=== PATIENT | female | born 1980 | race African-American/Black ===

== ENCOUNTER 2021-06-09 09:38 | Emergency (ER) | payer OTHER ==
--- OUTSIDE RECORDS SUMMARY | 2021-06-09 09:41 | XMS REPORT | Continuity of Care Document ---
:1980 Author Organization [facility] t Address [address] [place] [address] Care Team Providers Name Role Phone Ruthann TANNER Primary Care Physician Abdi Corado DO Attending Clinician Doctor Unassigned, Name Attending Clinician Unavailable Ulises Serrano MD Attending Clinician Nate CLARKE Attending Clinician Dilcia RN, L Attending Clinician Unavailable Ruthann TANNER Attending Clinician Payers Payer Name Policy Type Policy Effective Expiration Source Number Date Date [facility] [id number] 2019 [facility] - MANAGED 00:00:00 [facility] dical MEDICAIDCOMMUNITY Branch HEALTH CHOICE [id number] 019-[address] [address]Medicaid Problems Condition Condition Condition Status Onset Resolution Last Treating Co mments Source Name Details Category Date Date Treatment Clinician Date Iron Iron Disease Active 2019-11 Univers deficiency deficiency 0-13 it [place] of anemia due [place] to chronic to chronic 00 Ms dical blood loss blood loss Br anch History of History of Disease Active 2020- U nivers bilateral bilateral 8-04 ity of salpingect salpingect [place] Medical Branch BMI BMI Disease Active 2020-0 Univers 34.0-34.9, 34.0-34.9, 8-04 it y of adult adult 00:00: [place] 00 Medical Branch Vaginal Vaginal Disease Active 2020-0 Univers dryness dryness 8-04 ity of 00:00: [place] 00 Medical Branch Recurrent Recurrent Disease Active 2020-0 Uni vers candidiasi candidiasi 8-04 it y of s of s of 00:00: [place] vagina vagina 00 Medical Branch History of History of Disease Active 2020-0 U nivers breast breast 8-04 ity of biopsy biopsy 00:00: [place] 00 Medical Branch Pain Pain Disease Active 2020-0 Univers pelvic pelvic 8-04 ity of 00:00: [place] [facility] Menorrhagi Menorrhagi Disease Active 2020-0 U nivers a with a with 8-04 ity of regular regular 00:00: [place] cycle cycle 00 Medical Branch Chronic Chronic Disease Active 2020-0 Univers anemia anemia 8-04 ity of 00:00: [place] 00 Medical Branch Other Other Disease Resolve 2020-2020-06-09 2020-06-09 Univers general general d 4-02 00:00:00 15:25:54 it[place] of counseling counseling 00:00: [place] and advice and advice 00 Ms dical for [facility] Branch contracept contracept shakila shakila management management H/O: H/O: Disease Resolve 2020-0 2020-06-09 2020-06-09 Univers hysterecto hysterecto d 4- 00:00:00 15:56:34 ity of my my 00:00: [place] [facility] Vaginal Vaginal Disease Resolve 2020-0 2020-06-09 2020-06-09 Univers dryness dryness d 4- 00:00:00 15:25:54 ity of 00:00: [place] [facility] Pain Pain Disease Resolve 2019-2020-06-09 2020-06-09 Univers pelvic pelvic d 4- 00:00:00 15:56:43 ity of 00:00: [place] 00 Medical Branch Allergies, Adverse Reactions, Alerts This patient has no known allergies or adverse reactions. Social History Social Habit Start Date Stop Date Quantity Comments Source Exposure to Yes [facility] SARS-CoV-2 [facility] (event) [place] Tobacco use and 2021-02-23 2021-02-23 Never used Universit y of exposure 00:00:00 00:00:00 [facility] Alcohol intake 2021-02-23 2021-02-23 Ex-drinker [facility] 00:00:00 00:00:00 (finding) [facility] Sex Assigned At [birth year] Universit y of 00:00:00 00:00:00 [facility] Smoking Status Start Date Stop Date Source Never smoker [facility] Medications Ordered Filled Start Stop Current Ordering Indication Dosage Frequency Signature Comments Components Source Medication Medication Date Date Medication? Clinician (SIG) Name Name clotrimazol Yes Tinea Apply to Univers e 1 % 4-27 versicolor area(s) at it y of topical 00:00: bedtime. [place] cream 00 Medical Branch clotrimazol Yes Tinea Apply to Univers e 1 % 4-27 versicolor area(s) at it y of topical 00:00: bedtime. [place] cream 00 [facility] terconazole Yes Yeast 1{appli Insert 1 Univers 0.4 % 4-26 infection cator} Applicator i ty of vaginal 00:00: into [place] cream vagina at Medical bedtime. Branch dicyclomine Yes Stomach TAKE ONE Univers 10 mg 4-26 ache CAPSULE BY ity of capsule 00:00: MOUTH THREE Medical TIMES Branch DAILY NEEDED fluconazole Yes Yeast TAKE 1 Uni vers 150 mg 4-26 infection TABLET BY ity of tablet 00:00: MOUTH NOW AND 1 Medical TABLET Branch AFTER FINISHING ANTIBIOTIC S terconazole Yes Yeast 1{appli Insert 1 Univers 0.4 % 4-26 infection cator} Applicator i ty of vaginal 00:00: into [place] cream vagina at Medical bedtime. Branch dicyclomine Yes Stomach TAKE ONE Univers 10 mg 4-26 ache CAPSULE BY ity of capsule 00:00: MOUTH 00 THREE Medical TIMES Branch DAILY NEEDED linaCLOtide Yes 145ug Take 1 Uni vers (LINZESS) 4-26 capsule by ity of 145 mcg 00:00: mouth [place] capsule daily. Medical Appointmen Branch t needed for refills terconazole Yes Yeast 1{appli Insert 1 Univers 0.4 % 4-26 infection cator} Applicator i ty of vaginal 00:00: into [place] cream vagina at Medical bedtime. Branch dicyclomine Yes Stomach TAKE ONE Univers 10 mg 4-26 ache CAPSULE BY ity of capsule 00:00: MOUTH [place] 00 THREE Medical TIMES Branch DAILY NEEDED fluconazole Yes Yeast TAKE 1 Uni vers 150 mg 4-26 infection TABLET BY ity of tablet 00:00: MOUTH NOW [place] 00 AND 1 Medical TABLET Branch AFTER FINISHING ANTIBIOTIC S terconazole Yes Yeast 1{appli Insert 1 Univers 0.4 % 4-26 infection cator} Applicator i ty of vaginal 00:00: into [place] cream 00 vagina at Medical bedtime. Branch dicyclomine Yes Stomach TAKE ONE Univers 10 mg 4-26 ache CAPSULE BY ity of capsule 00:00: MOUTH [place] 00 THREE Medical TIMES Branch DAILY NEEDED linaCLOtide Yes 145ug Take 1 Uni vers (LINZESS) 4-26 capsule by ity of 145 mcg 00:00: mouth [place] capsule 00 daily. Medical Appointmen Branch t needed for refills amoxicillin Yes Seasonal 1{tbl} Take 1 Univers -clavulanat 4-16 allergic tablet by ity of e 00:00: rhinitis, mouth 2 [place] (AUGMENTIN) 00 unspecified (two) Medical 875-125 mg trigger times Branc h per tablet daily. amoxicillin Yes Seasonal 1{tbl} Take 1 Univers -clavulanat 4-16 allergic tablet by ity of e 00:00: rhinitis, mouth 2 [place] (AUGMENTIN) 00 unspecified (two) Medical 875-125 mg trigger times Branc h per tablet daily. doxycycline Yes Acute 100mg Take 1 Un anders hyclate 100 4-12 recurrent tablet by ity of mg tablet 00:00: maxillary mouth 2 [place] 00 sinusitis (two) Medical times Branch daily. montelukast Yes Seasonal 10mg Take 1 Univers 10 mg 4-12 allergic tablet by ity o f tablet 00:00: rhinitis, mouth [place] 00 unspecified daily. Medica l trigger Branch cetirizine Yes Seasonal 10mg Take 1 U nivers (ZYRTEC) 10 4-12 allergic tablet by ity of mg tablet 00:00: rhinitis, mouth [place] 00 unspecified daily. Medica l trigger Branch doxycycline Yes Acute 100mg Take 1 Un anders hyclate 100 4-12 recurrent tablet by ity of mg tablet 00:00: maxillary mouth 2 [place] 00 sinusitis (two) Medical times Branch daily. montelukast Yes Seasonal 10mg Take 1 Univers 10 mg 4-12 allergic tablet by ity o f tablet 00:00: rhinitis, mouth [place] 00 unspecified daily. Medica l trigger Branch cetirizine Yes Seasonal 10mg Take 1 U nivers (ZYRTEC) 10 4-12 allergic tablet by ity of mg tablet 00:00: rhinitis, mouth [place] 00 unspecified daily. Medica l trigger Branch MONTELUKAST Yes Seasonal TAKE 1 Univers 10 mg 3-22 allergic TABLET(10 ity o f tablet 00:00: rhinitis MG) BY 00 due to MOUTH Medical pollen EVERY Branch NIGHT MONTELUKAST Yes Seasonal TAKE 1 Univers 10 mg 3-22 allergic TABLET(10 ity o f tablet 00:00: rhinitis MG) BY due to MOUTH Medical pollen EVERY Branch NIGHT pantoprazol Yes 40mg Take 1 Univ ers e 40 mg EC 3-11 tablet by ity of tablet 00:00: mouth [place] 00 daily. Medical Branch pantoprazol Yes 40mg Take 1 Univ ers e 40 mg EC 3-11 tablet by ity of tablet 00:00: mouth [place] 00 daily. Medical Branch norelgestro Yes Menorrhagia 1{patch Apply 1 Univers min-ethinyl 1-22 with } Patch to ity of estradiol 00:00: regular skin [place] 150-35 00 cycle weekly. Medical mcg/24 hr Branch patch norelgestro Yes Menorrhagia 1{patch Apply 1 Univers min-ethinyl 1-22 with } Patch to ity of estradiol 00:00: regular skin [place] 150-35 00 cycle weekly. Medical mcg/24 hr Branch patch fluticasone Yes Use in Uni vers propionate 1-21 each ity of (FLONASE 15:36: nostril. [place] NASAL) 14 Medical Branch Lactobacill Yes Take by Un anders us 1-21 mouth. ity of acidophilus 15:36: [place] (PROBIOTIC 14 Medical ORAL) Branch fluticasone Yes Use in Uni vers propionate 1-21 each ity of (FLONASE 15:36: nostril. [place] NASAL) 14 Medical Branch Lactobacill Yes Take by Un anders us 1-21 mouth. ity of acidophilus 15:36: [place] (PROBIOTIC 14 Medical ORAL) Branch esomeprazol 2019-11 Yes 40mg Take 40 mg Univers e (NEXIUM 1-24 by mouth ity of PACKET) 40 00:00: daily with [place] mg packet 00 breakfast. [facility] elvis Branch esomeprazol 2019-11 Yes 40mg Take 40 mg Univers e (NEXIUM 1-24 by mouth ity of PACKET) 40 00:00: daily with [place] mg packet 00 breakfast. [facility] elvis Branch cetirizine Yes Seasonal TAKE 1 U nivers 10 mg 7-13 allergic TABLET(10 ity o f tablet 00:00: rhinitis MG) BY [place] due to MOUTH Medical pollen DAILY Branch cetirizine Yes Seasonal TAKE 1 U nivers 10 mg 7-13 allergic TABLET(10 ity o f tablet 00:00: rhinitis MG) BY [place] due to MOUTH Medical pollen DAILY Branch famotidine 0 Yes TK 1 T PO Un anders 40 mg 5-11 HS ity of tablet 00:00: 00 Medical Branch famotidine 2019-0 Yes TK 1 T PO Un anders 40 mg 5-11 HS ity of tablet 00:00: Medical Branch Procedures This patient has no known procedures. Plan of Care Planned Activity Planned Date Details Comments Source Future Scheduled 2022-02-23 Depression University of Test 00:00:00 screening [place] Medical (procedure) [code Branch = [id number]] Future Scheduled 2022-02-23 Depression University of Test 00:00:00 screening [place] Medical (procedure) [code Branch = [id number]] Future Scheduled 2021-08-01 Screening for University of Test 00:00:00 malignant neoplasm [place] Med ical of cervix Branch (procedure) [code = 217909399] Future Scheduled 2021-08-01 Screening for University of Test 00:00:00 malignant neoplasm [place] Med ical of cervix Branch (procedure) [code = [id number]] Future Scheduled 2021-07-07 INFLUENZA VACCINE Univer sity of Test 00:00:00 (Season Ended) [facility] [code = INFLUENZA Branch VACCINE (Season Ended)] Future Scheduled 2021-07-07 INFLUENZA VACCINE Univer sity of Test 00:00:00 (Season Ended) [place] [facility] [code = INFLUENZA Branch VACCINE (Season Ended)] Future Scheduled 2021-06-09 DTaP,Tdap,and Td Postponed from Unive rsity of Test 00:00:00 Vaccines ( - 2000 [place] Medical Tdap) [code = (Alternative Branch DTaP,Tdap,and Td Guidelines) Vaccines (1 - Tdap)] Future Scheduled 2021-06-09 VARICELLA VACCINES Postponed from Uni versity of Test 00:00:00 (1 of 2 - 2-dose 1981 [place] Medic al childhood series) (Alternative Branch [code = VARICELLA Guidelines) VACCINES (1 of 2 - 2-dose childhood series)] Future Scheduled 2021-06-09 DTaP,Tdap,and Td Postponed from Unive rsity of Test 00:00:00 Vaccines ( - 2000 [place] Medical Tdap) [code = (Alternative Branch DTaP,Tdap,and Td Guidelines) Vaccines (1 - Tdap)] Future Scheduled 2021-06-09 VARICELLA VACCINES Postponed from Uni versity of Test 00:00:00 (1 of 2 - 2-dose 1981 [place] Medic al childhood series) (Alternative Branch [code = VARICELLA Guidelines) VACCINES (1 of 2 - 2-dose childhood series)] Future Scheduled 1997 SARS-CoV-2 [place] [facility] 00:00:00 (COVID-19) Vaccine [place] Med ical (1) [code = Branch SARS-CoV-2 (COVID-19) Vaccine (1)] Future Scheduled 1997 SARS-CoV-2 [facility] 00:00:00 (COVID-19) Vaccine [place] Med ical (1) [code = Branch SARS-CoV-2 (COVID-19) Vaccine (1)] Encounters Start End Encounter Admission Attending Care Care Encounter Source Date/Time Date/Time Type Type Clinicians Facility Department ID 2021-06-08 2021-06-08 Emergency YANIQUE Corado [id number] 04:33:00 06:23:00 Usha Singh [id number] [place] [id number] [place] [id number] 2021-06-08 2021-06-08 Orders Doctor DIANE [id number] 00:00:00 00:00:00 Only Unassigned, DANIELLA [id number] [facility] [id number] 2021-05-27 2021-05-27 Refill Zach [facility] [[email or web address]] [id number] 00:00:00 00:00:00 [facility] [id number] Ulises Singh [id number] Professio [phone] nal [address] 2021-05-27 2021-05-27 Refill ReevesDoug [facility] [[email or web address]] [id number] 00:00:00 00:00:00 ise, SPECIALTY [id number] [facility] [id number] CENTER AT [phone] HEVER [address] [place] [address] 2021-05-05 2021-05-05 Telephone Dilcia Aguilar [id number] 00:00:00 00:00:00 , Maryswathi Tomlinson [id number] [place] [id number] 2021-04-30 2021-04-30 Refill ReevesDoug [facility] [[email or web address]] [id number] 00:00:00 00:00:00 ise, SPECIALTY [id number] [facility] [id number] CENTER AT [phone] HEVER Randle [facility] 2021-03-05 2021-03-05 Telephone Ruthann [facility] [[email or web address]] [id number] 00:00:00 00:00:00 [facility] [id number] [place] [id number] Professio [phone] nal 044 [address] One Results This patient has no known results.
--- NOTE | 2021-06-09 11:38 | RAD REPORT ---
EXAM DESCRIPTION: RAD - Chest Single View - 06/09/2021 11:32 am CLINICAL HISTORY: CONGESTION COMPARISON: No comparisons FINDINGS: No evidence of edema or pneumonia. The heart size is within normal limits.No acute osseous abnormality. No significant pleural effusions or pneumothorax. IMPRESSION: No acute cardiopulmonary disease.
--- NOTE | 2021-06-09 12:06 | EDPHYS ---
Physician Documentation [facility] Name: Carlos Cruz Age: 41 yrs Sex: Female : 1980 Arrival Date: 06/09/2021 Time: 09:41 Bed 16 Private MD: ALISA Physician Rusty Crouch HPI: 06/09 10:34 This 41 yrs old Black Female presents to ER via Ambulatory with complaints of Sore jr8 Throat, loss of smell, Decreased Appetite. 10:34 Has been no pain patient stated that her was recently admitted to [address] ICU for Covid pneumonia with hypoxia. Patient started with sore throat, decreased appetite and loss of smell over the last couple days. Wanted evaluation to see if she had Covid as well. Denies any other symptoms at this time.. 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 - Social history:: Smoking status: Patient denies any tobacco usage or history of. ROS: 10:34 Constitutional: Negative for fever, chills, and weight loss, Eyes: Negative for injury, jr8 pain, redness, and discharge, Neck: Negative for injury, pain, and swelling, Cardiovascular: Negative for chest pain, palpitations, and edema, Respiratory: Negative for shortness of breath, cough, wheezing, and pleuritic chest pain, Abdomen/GI: Negative for abdominal pain, nausea, vomiting, diarrhea, and constipation, Back: Negative for injury and pain, MS/Extremity: Negative for injury and deformity, Skin: Negative for injury, rash, and discoloration, Neuro: Negative for headache, weakness, numbness, tingling, and seizure. 10:34 ENT: Positive for sore throat, Anosmia. Exam: 10:34 Constitutional: This is a well developed, well nourished patient who is awake, alert, jr8 and in no acute distress. ENT: Nares patent. No nasal discharge, no septal abnormalities noted. Tympanic membranes are normal and external auditory canals are clear. Oropharynx with no redness, swelling, or masses, exudates, or evidence of obstruction, uvula midline. Mucous membranes moist. Neck: Trachea midline, no thyromegaly or masses palpated, and no cervical lymphadenopathy. Supple, full range of motion without nuchal rigidity, or vertebral point tenderness. No Meningismus. Cardiovascular: Regular rate and rhythm with a normal S1 and S2. No gallops, murmurs, or rubs. Normal PMI, no JVD. No pulse deficits. Respiratory: Lungs have equal breath sounds bilaterally, clear to auscultation and percussion. No rales, rhonchi or wheezes noted. No increased work of breathing, no retractions or nasal flaring. Abdomen/GI: Soft, non-tender, with normal bowel sounds. No distension or tympany. No guarding or rebound. No evidence of tenderness throughout. Back: No spinal tenderness. No costovertebral tenderness. Full range of motion. Skin: Warm, dry with normal turgor. Normal color with no rashes, no lesions, and no evidence of cellulitis. MS/ Extremity: Pulses equal, no cyanosis. Neurovascular intact. Full, normal range of motion. Neuro: Awake and alert, GCS 15, oriented to person, place, time, and situation. Motor strength 5/5 in all extremities. Sensory grossly intact. Vital Signs: 10:07 BP 129 / 99; Pulse 115; Resp 15; Temp 97(TE); Pulse Ox 97% on R/A; Weight 113.4 kg; ss Height 5 ft. 10 in. (177.80 cm); Pain 0/10; 11:35 BP 129 / 91; Pulse 90; Resp 18; Pulse Ox 100% ; vg1 13:05 BP 110 / 73; Pulse 80; Resp 16; Pulse Ox 100% ; vg1 10:07 Body Mass Index 35.87 (113.40 kg, 177.80 cm) ss MDM: 10:13 Patient medically screened. [facility] 12:04 Data reviewed: vital signs, nurses notes, lab test result(s), and as a result, I will jr8 discharge patient. Data interpreted: Pulse oximetry: on room air is 100 %. Interpretation: normal. Counseling: I had a detailed discussion with the patient and/or guardian regarding: the historical points, exam findings, and any diagnostic results supporting the discharge/admit diagnosis, lab results, the need for outpatient follow up, a family practitioner, to return to the emergency department if symptoms worsen or persist or if there are any questions or concerns that arise at home. ED course: Patient hemodynamically stable. No fever. No increased work of breathing. Chest x-ray unremarkable at this time. 100% on room air. Patient will go home with vitamin protocol for Covid but otherwise no indications for antibiotics or steroids at this time. Patient is to follow-up with primary care. Signs and symptoms given to watch for that would indicate need for further evaluation in the emergency room.. 06/09 12:03 Order name: SARS-COV-2 RT PCR; Complete Time: 12:06 EDMS 06/09 10:49 Order name: Chest Single View XRAY; Complete Time: 11:56 vg1 Administered Medications: No medications were administered Disposition: 06/10 07:30 Co-signature as Attending Physician, Rusty Crouch MD I agree with the assessment and estephanie plan of care. 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 ENT: Nares patent. No nasal discharge, no septal abnormalities noted. Tympanic membranes are normal and external auditory canals are clear. Oropharynx with no redness, swelling, or masses, exudates, or evidence of obstruction, uvula midline. Mucous membranes moist. Neck: Trachea midline, no thyromegaly or masses palpated, and no cervical lymphadenopathy. Supple, full range of motion without nuchal rigidity, or vertebral point tenderness. No Meningismus. Cardiovascular: Regular rate and rhythm with a normal S1 and S2. No gallops, murmurs, or rubs. Normal PMI, no JVD. No pulse deficits. Respiratory: Lungs have equal breath sounds bilaterally, clear to auscultation and percussion. No rales, rhonchi or wheezes noted. No increased work of breathing, no retractions or nasal flaring. Abdomen/GI: Soft, non-tender, with normal bowel sounds. No distension or tympany. No guarding or rebound. No evidence of tenderness throughout. Back: No spinal tenderness. No costovertebral tenderness. Full range of motion. Skin: Warm, dry with normal turgor. Normal color with no rashes, no lesions, and no evidence of cellulitis. MS/ Extremity: Pulses equal, no cyanosis. Neurovascular intact. Full, normal range of motion. Neuro: Awake and alert, GCS 15, oriented to person, place, time, and situation. Motor strength 5/5 in all extremities. Sensory grossly intact. jr8 11:03 10:37 CORONAVIRUS+MR.LAB.TEDZ ordered. EDMS EDMS
--- NOTE | 2021-06-09 12:06 | ER ---
Nurse's Notes [facility] Name: Carlos Cruz Age: 41 yrs Sex: Female : 1980 Arrival Date: 06/09/2021 Time: 09:41 Bed 16 Private MD: Diagnosis: SARS-associated coronavirus as the cause of diseases classified elsewhere Presentation: 06/09 10:07 Chief complaint: Patient states: "Around Monday I was having an upset stomach and sore ss throat, headache that wouldn't go away and unable to smell with low appetite that began yesterday." Pt reports a recent exposure to COVID. Coronavirus screen: Client presents with at least one sign or symptom that may indicate coronavirus-19. Standard/surgical mask placed on the client. Provider contacted for isolation considerations. Ebola Screen: Patient denies exposure to infectious person. Patient denies travel to an Ebola-affected area in the 21 days before illness onset. Initial Sepsis Screen: Does the patient meet any 2 criteria? No. Patient's initial sepsis screen is negative. Does the patient have a suspected source of infection? No. Patient's initial sepsis screen is negative. Risk Assessment: Do you want to hurt yourself or someone else? Patient reports no desire to harm self or others. Onset of symptoms was June 06, 2021. 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 - Social history:: Smoking status: Patient denies any tobacco usage or history of. Screenin:49 Abuse screen: Denies threats or abuse. Nutritional screening: No deficits noted. vg1 Tuberculosis screening: No symptoms or risk factors identified. Fall Risk No fall in past 12 months (0 pts). No secondary diagnosis (0 pts). No IV (0 pts). Ambulatory Aid- None/Bed Rest/Nurse Assist (0 pts). Gait- Normal/Bed Rest/Wheelchair (0 pts) Mental Status- Oriented to own ability (0 pts). Total Flores Fall Scale indicates No Risk (0-24 pts). Assessment: 10:44 General: Appears in no apparent distress. comfortable, Behavior is calm, cooperative. vg1 Pain: Denies pain. Neuro: Level of Consciousness is awake, alert, obeys commands, Oriented to person, place, time, situation, Reports headache. Cardiovascular: Patient's skin is warm and dry. Respiratory: Airway is patent Respiratory effort is even, unlabored, Breath sounds are diminished in left posterior lower lobe and right posterior lower lobe. GI: Reports nausea, Patient currently denies diarrhea, vomiting. : No signs and/or symptoms were reported regarding the genitourinary system. EENT: Throat is reddened Reports nasal congestion. Derm: Skin is intact, is healthy with good turgor. Musculoskeletal: Circulation, motion, and sensation intact. 11:49 Reassessment: Patient appears in no apparent distress at this time. No changes from vg1 previously documented assessment. Patient and/or family updated on plan of care and expected duration. Pain level reassessed. Patient is alert, oriented x 3, equal unlabored respirations, skin warm/dry/pink. 13:04 Reassessment: Patient appears in no apparent distress at this time. Patient and/or vg1 family updated on plan of care and expected duration. Pain level reassessed. Patient is alert, oriented x 3, equal unlabored respirations, skin warm/dry/pink. Vital Signs: 10:07 BP 129 / 99; Pulse 115; Resp 15; Temp 97(TE); Pulse Ox 97% on R/A; Weight 113.4 kg; Height 5 ft. 10 in. (177.80 cm); Pain 0/10; 11:35 BP 129 / 91; Pulse 90; Resp 18; Pulse Ox 100% ; vg1 13:05 BP 110 / 73; Pulse 80; Resp 16; Pulse Ox 100% ; vg1 10:07 Body Mass Index 35.87 (113.40 kg, 177.80 cm) ED Course: 09:41 Patient arrived in ED. ds1 10:09 Triage completed. ss 10:10 Arm band placed on left wrist. ss 10:13 Zackary Em PA is PHCP. jr8 10:13 Rusty Crouch MD is Attending Physician. jr8 10:38 Juan, Kanchan, RN is Primary Nurse. vg1 10:49 Bed in low position. Call light in reach. Side rails up X 1. vg1 10:49 No provider procedures requiring assistance completed. Patient did not have IV access vg1 during this emergency room visit. 10:52 COVID swab sent to lab. vg1 11:32 Chest Single View XRAY In Process Unspecified. EDMS Administered Medications: No medications were administered Outcome: 12:05 Discharge ordered by . omari 13:05 Discharged to home ambulatory. vg1 13:05 Condition: stable 13:05 Instructed on discharge instructions, follow up and referral plans. Demonstrated understanding of instructions, follow-up care. 13:05 Patient left the ED. vg1 Signatures: Dispatcher [employer] EDAK AvilesMarcia carreon ds1 Sonia Anders, KEITH RN Zackary Shaikh PA PA jr8 Kanchan Martinez, RN RN vg1
[2021-06-09 13:12] VITALS: TEMP 97
[2021-06-09 13:14] VITALS: O2SAT 100
[2021-06-09 13:15] VITALS: BP 110/73
== END 2021-06-09 13:05 | disposition home or self-care (01) ==
LOC: ER 09:38
DX: U07.1 COVID-19 (principal)
CPT/HCPCS: 71045; 99283; U0003

== ENCOUNTER 2021-06-14 12:52 | Emergency (ER) | payer OTHER ==
--- OUTSIDE RECORDS SUMMARY | 2021-06-14 12:56 | XMS REPORT | Continuity of Care Document ---
:1980 Author Organization [facility] t Address [address] [place] [address] Care Team Providers Name Role Phone Ruthann TANNER Primary Care Physician Indira Villegas PA-C, M Attending Clinician Ulises Serrano MD Attending Clinician Abdi Corado DO Attending Clinician Doctor Unassigned, Name Attending Clinician Unavailable Nate CLARKE Attending Clinician Dilcia RN, L Attending Clinician Unavailable Ruthann TANNER Attending Clinician Payers Payer Name Policy Type Policy Effective Expiration Source Number Date Date [facility] [id number] 2019 [facility] - MANAGED 00:00:00 [facility] dical MEDICAIDCOMMUNITY Branch HEALTH CHOICE [id number]/11/[id number] 019-[address] [address]Medicaid Problems Condition Condition Condition Status Onset Resolution Last Treating Co mments Source Name Details Category Date Date Treatment Clinician Date Iron Iron Disease Active 2019-11 Univers deficiency deficiency 0-13 [place] chronic to chronic 00 Me dical blood loss blood loss Br anch History of History of Disease Active 2019- U nivers bilateral bilateral 8-04 it[place] of sal[place] [facility] BMI BMI Disease Active 2020-0 Univers 34.0-34.9, 34.0-34.9, 8-04 it y of adult adult 00:00: [place] 00 Medical Branch Vaginal Vaginal Disease Active Univers dryness dryness 8-04 ity of 00:00: [place] 00 Medical Branch Recurrent Recurrent Disease Active 2020- Uni vers candidiasi candidiasi 8-04 it y of s of s of 00:00: [place] vagina vagina 00 Medical Branch History of History of Disease Active 2019- U nivers breast breast 8-04 ity of biopsy biopsy 00:00: [place] 00 Medical Branch Pain Pain Disease Active 2020- Univers pelvic pelvic 8-04 ity of 00:00: [place] 00 Medical Branch Menorrhagi Menorrhagi Disease Active 2019- U nivers a with a with 8-04 ity of regular regular 00:00: [place] cycle cycle 00 Medical Branch Chronic Chronic Disease Active 2020- Univers anemia anemia 8-04 ity of 00:00: [place] 00 Medical Branch Other Other Disease Resolve 2020-06-09 2020-06-09 Univers general general d 4- 00:00:00 15:25:54 [place] and advice and advice 00 Me dical for for Branch contracept contracept shakila shakila management management H/O: H/O: Disease Resolve 2020-06-09 2020-06-09 Univers hysterecto hysterecto d 4- 00:00:00 15:56:34 ity of my my 00:00: [place] 00 Medical Branch Vaginal Vaginal Disease Resolve 2020-06-09 2020-06-09 Univers dryness dryness d 4- 00:00:00 15:25:54 ity of 00:00: [place] 00 Medical Branch Pain Pain Disease Resolve 2020-06-09 2020-06-09 Univers pelvic pelvic d 4- 00:00:00 15:56:43 ity of 00:00: [place] 00 Medical Branch Allergies, Adverse Reactions, Alerts This patient has no known allergies or adverse reactions. Social History Social Habit Start Date Stop Date Quantity Comments Source Exposure to Yes University of SARS-CoV-2 [facility] (event) [place] Tobacco use and 2021-02-23 2021-02-23 Never used Universit y of exposure 00:00:00 00:00:00 [place] [facility] Alcohol intake 2021-02-23 2021-02-23 Ex-drinker [facility] 00:00:00 00:00:00 (finding) [facility] Sex Assigned At [birth year] Universit y of 00:00:00 00:00:00 [facility] Smoking Status Start Date Stop Date Source Never smoker [facility] Medications Ordered Filled Start Stop Current Ordering Indication Dosage Frequency Signature Comments Components Source Medication Medication Date Date Medication? Clinician (SIG) Name Name clotrimazol Yes Tinea Apply to Univers e 1 % 4-27 versicolor area(s) at it y of topical 00:00: bedtime. [place] cream Medical Branch clotrimazol Yes Tinea Apply to Univers e 1 % 4-27 versicolor area(s) at it y of topical 00:00: bedtime. [place] cream [facility] terconazole Yes Yeast 1{appli Insert 1 [...] MOUTH THREE Medical TIMES Branch DAILY NEEDED linaCLOtide [...] with [place] mg packet [address] [facility] Branch esomeprazol 2019-11 Yes 40mg Take 40 mg Univers e (NEXIUM 1-24 by mouth ity of PACKET) 40 00:00: daily with [place] mg packet [address] [facility] Branch cetirizine Yes Seasonal TAKE 1 U nivers 10 mg 7-13 allergic TABLET(10 ity o f tablet 00:00: rhinitis MG) BY [place] 00 due to MOUTH Medical pollen DAILY Branch cetirizine Yes Seasonal TAKE 1 U nivers 10 mg 7-13 allergic TABLET(10 ity o f tablet 00:00: rhinitis MG) BY [place] 00 due to MOUTH Medical pollen DAILY Branch famotidine Yes TK 1 T PO Un anders 40 mg 5-11 HS ity of tablet 00:00: [place] 00 Medical Branch famotidine 0 Yes TK 1 T PO Un anders 40 mg 5-11 HS ity of tablet 00:00: [place] 00 Medical Branch Procedures This patient has no known procedures. Plan of Care Planned Activity Planned Date Details Comments Source Future Scheduled 2022-02-23 Depression University of Test 00:00:00 screening [place] [facility] (procedure) [code Branch = [id number]] Future Scheduled 2022-02-23 Depression University of Test 00:00:00 screening [place] [facility] (procedure) [code Branch = [id number]] Future Scheduled 2021-08-01 Screening for University of Test 00:00:00 malignant neoplasm [place] [facility] ical of cervix Branch (procedure) [code = [id number]] Future Scheduled 2021-08-01 Screening for University of Test 00:00:00 malignant neoplasm [place] [facility] ical of cervix Branch (procedure) [code = [id number]] Future Scheduled 2021-07-07 INFLUENZA VACCINE Univer sity of Test 00:00:00 (Season Ended) [place] [facility] [code = INFLUENZA Branch VACCINE (Season Ended)] Future Scheduled 2021-07-07 INFLUENZA VACCINE Univer sity of Test 00:00:00 (Season Ended) [place] [facility] [code = INFLUENZA Branch VACCINE (Season Ended)] Future Scheduled 2021-06-09 DTaP,Tdap,and Td Postponed from Unive rsity of Test 00:00:00 Vaccines ( - 2000 [facility] Tdap) [code = (Alternative Branch DTaP,Tdap,and Td Guidelines) Vaccines (1 - Tdap)] Future Scheduled 2021-06-09 VARICELLA VACCINES Postponed from Uni versity of Test 00:00:00 (1 of 2 - 2-dose 1981 [place] [facility] childhood series) (Alternative Branch [code = VARICELLA Guidelines) VACCINES (1 of 2 - 2-dose childhood series)] Future Scheduled 2021-06-09 DTaP,Tdap,and Td Postponed from Unive rsity of Test 00:00:00 Vaccines (2000 [facility] Tdap) [code = (Alternative Branch DTaP,Tdap,and Td Guidelines) Vaccines (1 - Tdap)] Future Scheduled 2021-06-09 VARICELLA VACCINES Postponed from Uni versity of Test 00:00:00 (1 of 2 - 2-dose 1981 [place] [facility] childhood series) (Alternative Branch [code = VARICELLA Guidelines) VACCINES (1 of 2 - 2-dose childhood series)] Future Scheduled 1997 SARS-CoV-2 University of Test 00:00:00 (COVID-19) Vaccine [place] [facility] ical (1) [code = Branch SARS-CoV-2 (COVID-19) Vaccine (1)] Future Scheduled 1997 SARS-CoV-2 University of Test 00:00:00 (COVID-19) Vaccine [place] [facility] ical (1) [code = Branch SARS-CoV-2 (COVID-19) Vaccine (1)] Encounters Start End Encounter Admission Attending Care Care Encounter Source Date/Time Date/Time Type Type Clinicians Facility Department ID 2021-06-12 2021-06-12 Adebayoedicjose e Jacobson IAJULIO [id number] 17:33:18 17:48:18 ne Visit [facility] Jose [id number] Pediatric [id number] [place] [phone] 370 2021-06-10 2021-06-10 [facility] [id number] 00:00:00 00:00:00 [id number] [facility] [id number] Professio [phone] [place] [address] [address] 2021-06-08 2021-06-08 Emergency [facility] [id number] 04:33:00 06:23:00 Usha Singh [id number] [place] [id number] [place] [id number] 2021-06-08 2021-06-08 Orders Doctor DIANE [id number] 00:00:00 00:00:00 Only Unassigned, DANIELLA [id number] [place] [facility] [id number] [id number] 2021-05-27 2021-05-27 [facility] [id number] 00:00:00 00:00:00 [facility] [id number] [facility] [id number] [facility] [phone] [place] [address] Office [facility] One 2021-05-27 2021-05-27 Refill [facility] [id number] 00:00:00 00:00:00 ise, SPECIALTY [id number] [facility] [id number] [facility] [id number] [place] 072 [facility] 2021-05-05 2021-05-05 Telephone Dilcia Aguilar [id number] 00:00:00 00:00:00 , Mary Tomlinson [id number] [place] [id number] 2021-05-05 2021-05-05 Orders Doctor DIANE [id number] 00:00:00 00:00:00 Only Unassigned, DANIELLA [id number] [facility] [id number] 2021-04-30 2021-04-30 [facility] [id number] 00:00:00 00:00:00 ise, SPECIALTY [id number] [facility] [id number] SANDY HOOK AT [phone] H[place] [address] [place] [address] 2021-03-05 2021-03-05 Telephone Ruthann [facility] [id number] 00:00:00 00:00:00 [facility] [id number] [place] [id number] Profess [phone] [place] [address] One Results This patient has no known results.
== END 2021-06-14 14:07 | disposition left against medical advice (07) ==
LOC: ER 12:52
DX: Z02.9 Encounter for administrative examinations, unspecified (principal)